=== PATIENT | female | born 1960 | race Caucasian/White ===

== ENCOUNTER 2018-12-09 13:49 | Outpatient (CLI) | payer BC, OTHER ==
[~2018-12-09 13:49] MED LIST: CALC-112 PO; FENT1PAT9 TD; FOLI-17 PO; METH2.5T25 PO
== END 2018-12-09 23:59 | disposition home or self-care (01) ==
LOC: CFH 13:49
PROVIDERS: ATTEND Nurse Practitioner Family
DX: N64.4 Mastodynia (principal)
CPT/HCPCS: 76641; 77066; G0279